=== PATIENT | female | born 1990 ===

== ENCOUNTER 2023-04-11 16:39 | Emergency (ER) | payer SELFPAY ==
[~2023-04-11] VITALS: Ht 177.8 cm; Wt 56.7 kg
[2023-04-11 16:44] VITALS: BP 122/87
[2023-04-11] MEDS ORDERED: Clindamycin HC150 MG PO (17:27)
== END 2023-04-11 17:36 | disposition home or self-care (01) ==
LOC: ER 16:39
DX: L03.115 Cellulitis of right lower limb (principal); Z88.0 Allergy status to penicillin; Z88.8 Allergy status to other drugs, medicaments and biological substances
CPT/HCPCS: 99283